=== PATIENT | female | born 1980 | race Caucasian/White ===

== ENCOUNTER 2025-08-05 15:09 | Emergency (ER) | payer OTHER, SELFPAY ==
[2025-08-05 15:13] VITALS: BP 137/81; PULSE 97; RESP 18; TEMP 37.1; O2SAT 97
[2025-08-05 15:19] VITALS: O2SAT 99
[2025-08-05] MEDS: FAMOTIDINE 20 MG/2 ML VIAL IV PUSH (15:37)
[2025-08-05 15:47] VITALS: PULSE 102; RESP 33
[2025-08-05] MEDS: IPRATROPIUM 0.5 MG/ALBUTEROL SULFATE 2.5 MG (BASE) AMPUL.NEB 3 ML INHALATION (15:47)
[2025-08-05 15:55] VITALS: PULSE 114; RESP 22
--- NOTE | 2025-08-05 16:34 | ED.GENADULT ---
HPI - General Adult General Chief complaint: Allergic Reaction Stated complaint: ANAPHALAXIS Time Seen by Provider: 08/05/25 15:24 History of Present Illness HPI narrative: Patient is a 44-year-old female who presents emergency department with chief complaint of allergic reaction the patient reports that she has had issues with allergic reactions to mold before in the past was cleaning her basement and realized that she was exposed to mold the patient reports that she started having redness and swelling to her face and hives over her body the patient states that she took an EpiPen and then came to the emergency department. The patient reports her symptoms are improved Related Data Allergies Allergy/AdvReac Type Severity Reaction Status Date / Time shellfish derived Allergy Severe Anaphylaxis Verified 08/05/25 15:21 mold Allergy Intermediate Hives Verified 08/05/25 15:21 house dust mite Allergy Unknown Verified 08/05/25 15:21 Review of Systems Review of Systems: A 10 system review of systems was completed on the patient and is negative except for what is stated in the HPI. Nursing and ancillary documentation was reviewed. Exam Narrative: GENERAL: Well-appearing, well-nourished, and in no acute distress. HEAD: Normocephalic, atraumatic. EYES: PERRLA and EOMI. ENT: Nares clear, no rhinorrhea or epistaxis. Mucous membranes moist. No angioedema NECK: Supple. CHEST: Clear to auscultation. No respiratory distress. HEART: Regular rate and rhythm. No murmur heard. Normal peripheral pulses. No stridor ABDOMEN: Soft, nontender, nondistended, normal active bowel sounds. EXTREMITIES: Normal range of motion. No edema. SKIN: Warm, dry, scattered urticaria. NEURO: No focal deficits. Alert and oriented x3. PSYCH: Normal mood and affect. Course Vital Signs Vital signs: Vital Signs Temperature 37.1 C 08/05/25 15:13 Pulse Rate 97 08/05/25 15:13 Respiratory Rate 18 08/05/25 15:13 Blood Pressure 137/81 08/05/25 15:13 Pulse Oximetry 97 08/05/25 15:13 Oxygen Delivery Autopap 08/05/25 15:13 Temperature 37.1 C 08/05/25 15:13 Pulse Rate 114 H 08/05/25 15:55 Respiratory Rate 22 H 08/05/25 15:55 Blood Pressure 137/81 08/05/25 15:13 Pulse Oximetry 99 08/05/25 15:19 Oxygen Delivery Room Air 08/05/25 15:19 Medical Decision Making Vital Signs Vital Signs: Vital Signs Temperature 37.1 C 08/05/25 15:13 Pulse Rate 97 08/05/25 15:13 Respiratory Rate 18 08/05/25 15:13 Blood Pressure 137/81 08/05/25 15:13 Pulse Oximetry 97 08/05/25 15:13 Oxygen Delivery Autopap 08/05/25 15:13 Temperature 37.1 C 08/05/25 15:13 Pulse Rate 114 H 08/05/25 15:55 Respiratory Rate 22 H 08/05/25 15:55 Blood Pressure 137/81 08/05/25 15:13 Pulse Oximetry 99 08/05/25 15:19 Oxygen Delivery Room Air 08/05/25 15:19 Discharge Plan Discharge Clinical Impression: Allergic reaction Patient Disposition: Home Condition: Stable Instructions: Antibiotic Form, General Allergic Reaction (ED) Patient Language: [place] Prescriptions: New prednisone 20 mg tablet 40 mg PO DAILY 5 Days Qty: 10 0RF Follow-up/Referrals: UNKNOWN,DOCTOR [Primary Care Provider] Time of Disposition: 17:27
[2025-08-05 17:25] VITALS: BP 136/71; PULSE 95; RESP 20; O2SAT 95
== END 2025-08-05 17:39 | disposition home or self-care (01) ==
PROVIDERS: Emergency Provider Emergency Medicine
DX: T78.40XA Allergy, unspecified, initial encounter (principal)
CPT/HCPCS: 94640; 96374; 96375; 99284; J1200; J2919

== ENCOUNTER 2025-09-13 17:11 | Emergency (ER) | payer OTHER, SELFPAY ==
--- NOTE | ~2025-09-13 | XR_ITS ---
EXAMINATION: XR finger 2nd LT min 2V DATE: 09/13/2025 18:02 INDICATION: Dog bite around the proximal index finger. TECHNIQUE: 4 views were obtained. COMPARISON: None. FINDINGS: Significant soft tissue injury including apparent open wound surrounding the proximal phalanx. No acute fracture. No radiopaque foreign objects. IMPRESSION: 1. No acute fracture. Significant soft tissue injury as described above of the index finger. Reviewed, dictated and finalized at location [facility]
[2025-09-13 17:24] VITALS: BP 141/74; PULSE 83; RESP 16; TEMP 36.6; O2SAT 99
[2025-09-13] MEDS: TETANUS,DIPHTHERIA,AC PERTUSSIS ADULT (0.5 ML) BOOSTRIX IM (17:48)
--- NOTE | 2025-09-13 17:56 | ED_ITS ---
HPI - Wound/Laceration General Chief Complaint: Wound/Laceration Stated Complaint: Dog Bite Time Seen by Provider: 09/13/25 17:45 Source: patient and RN notes reviewed Mode of arrival: ambulatory Limitations: no limitations History of Present Illness HPI narrative: 44-year-old female patient presents today with a dog bite to the dorsum of her left 2nd finger at the proximal phalanx. This was sustained just prior to arrival in patient was bit by her own dog at home as it tried to bite a water gun the patient was holding. Patient is not up-to-date on her tetanus vaccine. Dog is up-to-date on all vaccines. Currently rates her pain 06/03. No OTC treatment prior to arrival. Denies numbness or tingling. Related Data Home Medications ?Medication ?Instructions ?Recorded ?Confirmed ?Last Taken ?Type albuterol 90 mcg-budesonide 80 inh inhalation 09/13/25 Unknown History mcg/actuation HFA aerosol inhaler (Airsupra) albuterol sulfate 90 mcg/actuation inhalation 09/13/25 Unknown History aerosol inhaler atorvastatin 20 mg tablet mg 09/13/25 Unknown History baclofen 10 mg tablet mg 09/13/25 Unknown History budesonide-formoterol HFA 160 inhalation 09/13/25 Unk nown History mcg-4.5 mcg/actuation aerosol inhaler (Symbicort) bupropion HCl 150 mg 24 hr tablet, mg PO 09/13/25 Unk nown History extended release cetirizine 10 mg tablet mg 09/13/25 Unknown History dextroamphetamine-amphetamine 20 09/13/25 Unknown Hi story mg tablet epinephrine 0.3 mg/0.3 mL 09/13/25 Unknown History injection, auto-injector erenumab-aooe 70 mg/mL mg subcut 09/13/25 Unknown History subcutaneous auto-injector (Aimovig Autoinjector) ergocalciferol (vitamin D2) 1,250 09/13/25 Unknown H istory mcg (50,000 unit) capsule fluticasone propionate 50 intranasal 09/13/25 Unknown History mcg/actuation nasal spray,suspension hydrochlorothiazide 25 mg tablet mg 09/13/25 Unknown History losartan 100 mg tablet mg 09/13/25 Unknown History nicotine 21 mg/24 hr daily 09/13/25 Unknown History transdermal patch omeprazole 40 mg capsule,delayed mg 09/13/25 Unknown History release sertraline 100 mg tablet mg 09/13/25 Unknown History terbinafine HCl 250 mg tablet mg 09/13/25 Unknown His tory trazodone 50 mg tablet mg 09/13/25 Unknown History ubrogepant 100 mg tablet (Ubrelvy) mg 09/13/25 Unknow n History Allergies Allergy/AdvReac Type Severity Reaction Status Date / Time cephalexin (From Keflex) Allergy Severe Hives Verified 09/13/25 17:29 shellfish derived Allergy Severe Anaphylaxis Verified 09/13/25 17:29 mold Allergy Intermediate Hives Verified 09/13/25 17:29 house dust mite Allergy Unknown Verified 09/13/25 17:29 PMFSH Comments At time of signature, I have reviewed and agree with nursing past medical, surgical, social and family history unless otherwise noted. Please see nursing chart for further information. There is no relevant family history pertinent to the presenting complaint Exam Narrative: GENERAL: Well-appearing, well-nourished, and in no acute distress. HEAD: Normocephalic, atraumatic. EYES: EOMI. No redness or drainage. Conjunctivae normal. ENT: Mucous membranes pink and moist. NECK: Normal AROM. CHEST: No respiratory distress. EXTREMITIES: Left 2nd finger: 1.5 cm full-thickness linear laceration to the dorsum of the proximal phalanx. Distal sensation intact. Capillary refill normal. Full range of motion against resistance. SKIN: Warm, dry, no rash. Capillary refill normal. Normal skin turgor. NEURO: No focal deficits. Alert and oriented x3. Gait steady. PSYCH: Normal affect. No signs of depression or anxiety. Course Course Level of Care: Express Care Visit Vital Signs Vital signs: Vital Signs Temperature 97.8 F 09/13/25 17:24 Pulse Rate 83 09/13/25 17:24 Respiratory Rate 16 09/13/25 17:24 Blood Pressure 141/74 H 09/13/25 17:24 Pulse Oximetry 99 09/13/25 17:24 Temperature 97.8 F 09/13/25 17:24 Pulse Rate 83 09/13/25 17:24 Respiratory Rate 16 09/13/25 17:24 Blood Pressure 141/74 H 09/13/25 17:24 Pulse Oximetry 99 09/13/25 17:24 Reviewed Procedures Laceration Laceration 1: Date: 09/13/25 Time: 18:46 Site: hand Side (If applicable): left Size (cm): 1.5 Description: linear Depth: simple, single layer Local Anesthetic: lidocaine 1% Amount of anesthesia used (mL): 3 Pre-repair: wound explored and irrigated extensively ====== Skin Level ====== Skin layer closed with: nylon Size (cm): 5-0 Number of sutures: 3 Technique: simple, interrupted (loose approximation) ====== Subcutaneous Layer ====== ====== Muscle Layer ====== ====== Tendon Layer ====== Dressing: Patient tolerated procedure well. MDM - Wound/Laceration MDM Narrative Medical decision making narrative: 44-year-old female patient presents today with a dog bite to the dorsum of her left 2nd finger at the proximal phalanx. This was sustained just prior to arrival in patient was bit by her own dog at home as it tried to bite a water gun the patient was holding. Patient is not up-to-date on her tetanus vaccine. Dog is up-to-date on all vaccines. Currently rates her pain 8/10. No OTC treatment prior to arrival. Denies numbness or tingling. Upon exam,1.5 cm full-thickness linear laceration to the dorsum of the proximal phalanx. Distal sensation intact. Capillary refill normal. Full range of motion against resistance. Tetanus shot updated. Finger x-ray negative for fracture. Three sutures placed in the laceration, loosely approximating the skin after extensive irrigation under pressure with 250ml NS. Care instructions given to patient regarding laceration care. Patient will be placed on Augmentin to prevent infection. Vital signs stable. Patient agrees with plan. Anticipatory guidance given. ED precautions given. Differential Diagnosis Differential diagnosis: Likely laceration, avulsion of skin and other (Dog bite) Imaging Data Radiologist's impression: ITS Impressions Finger X-Ray 09/13/25 18:19 IMPRESSION: 1. No acute fracture. Significant soft tissue injury as described above of the index finger. Critical Care Time Critical Care Time Critical Care Time: No Discharge Plan Discharge Clinical Impression: Dog bite of finger Qualifiers: Encounter type: initial encounter Qualified Code(s): S61.259A - Open bite of unspecified finger without damage to nail, initial encounter Patient Disposition: Home Condition: Stable Instructions: Antibiotic Form, Care For Your Stitches (ED) Additional Instructions: Your dog bite has been loosely sutured. Your sutures need to be removed in 7-10 days. Wear the dressing that has been applied for the first 24 hours to allow a scab to start forming. After this, you may remove and wash as normal with soap and water. Do NOT wash with peroxide or alcohol. Do NOT apply antibiotic ointment. Do not submerge your sutures in standing water such as pools, hot tubs, or sinks until they are removed. Take tylenol or ibuprofen at home for pain, if able. Follow up with your PCP with any signs of infection such as redness, swelling, increased pain, or drainage. Take the antibiotics as prescribed until gone. Your tetanus shot has been updated today. Patient Language: Armenian Prescriptions: New amoxicillin-pot clavulanate 875-125 mg tablet 1 tablet PO Q12H 7 Days Qty: 14 0RF No Action atorvastatin 20 mg tablet trazodone 50 mg tablet cetirizine 10 mg tablet sertraline 100 mg tablet omeprazole 40 mg capsule,delayed release(DR/EC) terbinafine HCl 250 mg tablet baclofen 10 mg tablet dextroamphetamine-amphetamine 20 mg tablet nicotine 21 mg/24 hr patch 24 hour hydrochlorothiazide 25 mg tablet ergocalciferol (vitamin D2) 1,250 mcg (50,000 unit) capsule epinephrine 0.3 mg/0.3 mL auto-injector albuterol sulfate 90 mcg/actuation HFA aerosol inhaler INHALATION losartan 100 mg tablet fluticasone propionate 50 mcg/actuation spray,suspension INTRANASAL bupropion HCl 150 mg tablet extended release 24 hr PO budesonide-formoterol [Symbicort] 160-4.5 mcg/actuation HFA aerosol inhaler INHALATION Aimovig Autoinjector 70 mg/mL auto-injector SUBCUT Ubrelvy 100 mg tablet Airsupra 90-80 mcg/actuation HFA aerosol inhaler INHALATION Follow-up/Referrals: PHYSICIAN,TRANSPORTATION DRIVER [Primary Care Provider, Internal Medicine] Time of Disposition: 18:46
[2025-09-13] MEDS: LIDOCAINE 1% LOCAL INJ 2 ML AMPUL 4 ML INFILTRATE (18:45)
== END 2025-09-13 18:50 | disposition home or self-care (01) ==
PROVIDERS: Emergency Provider Nurse Practitioner
DX: S61.251A Open bite of left index finger without damage to nail, initial encounter (principal); Z79.899 Other long term (current) drug therapy; Z23 Encounter for immunization; W54.0XXA Bitten by dog, initial encounter
CPT/HCPCS: 12001; 73140; 90471; 90715; 99213; G0463; J2003